=== PATIENT | male | born 1960 ===

== ENCOUNTER 2017-06-14 07:56 | Day surgery (SDC) | payer BC ==
[2017-05-24 10:17] VITALS: BMI 32.1
[2017-06-14 08:41] VITALS: RESP 18
[2017-06-14] MEDS ORDERED: ceFAZolin IV 2 gm in Dextrose 1 GM/50 ML BAG IVPB ONE (10:25)
[2017-06-14] MEDS ORDERED: Propofol 10 mg/ml Inj (20 ML) ONE (10:27)
[2017-06-14] MEDS ORDERED: Midazolam 2 MG/2 ML VIAL ONE (10:27)
[2017-06-14] MEDS ORDERED: Lactated Ringer's 1,000 ML IV ONE ×2 (10:30→12:48)
[2017-06-14] MEDS ORDERED: Neostigmine Methylsulfate 3mg/3ml Syringe IV ONE (12:22)
--- NOTE | 2017-06-14 12:58 | PCM.SURG1 ---
Surgeon's Initial Post Op Note - Surgeon's Notes Surgeon: Lázaro Siu MD Atmospheric Physicist: None Type of Anesthesia: General Endo, [facility] Pre-Operative Diagnosis: Right knee. #1 complex medial meniscal tear. 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 #3 synovitis Operative Findings: Right knee. #1 complex medial meniscal tear. 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 #3 complex anterior horn lateral meniscal tear. #3 synovitis Post-Operative Diagnosis: Right knee. #1 complex medial meniscal tear. 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 #3 complex anterior horn lateral meniscal tear. #4 synovitis. #5 medial plica band. #6 fat pad inflammation Operation Performed: Right knee Arthroscopic. #1 partial medial and lateral menisectomy. #2 chondroplasty and microfracture medial femoral condyle and tibial plateau. #3 synovectomy, resection plica, & debridement fat pad Specimen/Specimens Removed: specimen= none. implants= none. touniquet time= 0min. complications= none Estimated Blood Loss: EBL {In ML}: 3 Blood Products Given: N/A Drains Used: No Drains Date of Surgery/Procedure: 06/14/17 Time of Surgery/Procedure: 13:01
[2017-06-14] MEDS: HYDROmorphone 0.5 mg/0.5 ml ISec IVP PRN ×3 (13:00→13:18)
[2017-06-14] MEDS ORDERED: Oxycodone/Acetaminophen 5/325 mg Tab PO PRN (13:02)
[2017-06-14] MEDS ORDERED: Midazolam 2 MG/2 ML VIAL IVP PRN (13:25)
[2017-06-14] MEDS ORDERED: HYDROmorphone 1 mg/ml ISec IVP PRN (13:25)
[2017-06-14 15:00] VITALS: BP 1385/75; PULSE 88; TEMP 97.1; O2SAT 100
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
== END 2017-06-14 16:13 | disposition home or self-care (01) ==
LOC: C.SDS 07:56
PROVIDERS: ATTEND Student in an Organized Health Care Education/Training Program
DX: M23.211 Derangement of anterior horn of medial meniscus due to old tear or injury, right knee (principal); M94.261 Chondromalacia, right knee; M67.861 Other specified disorders of synovium, right knee; M65.861 Other synovitis and tenosynovitis, right lower leg
CPT/HCPCS: 29875; 29879; 29880; 97116; 97161; G8978; G8979; G8980; J0690; J1170; J2175; J2250; J2405; J2704; J2710; J3010; J7120

== ENCOUNTER 2017-07-02 16:49 | Emergency (ER) | payer OTHER, BC ==
[2017-07-02 16:49] VITALS: BMI 32.1
[2017-07-02 17:12] VITALS: PULSE 81; RESP 18; TEMP 98.1; O2SAT 98
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
[2017-07-02 18:46] VITALS: BP 134/72
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
== END 2017-07-02 18:35 | disposition home or self-care (01) ==
LOC: C.ER 16:49
DX: M25.561 Pain in right knee (principal)

== ENCOUNTER 2017-07-17 17:47 | Emergency (ER) | payer OTHER, BC ==
[2017-07-17 17:47] VITALS: BMI 32.1
[2017-07-17 17:56] VITALS: O2SAT 97
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
[2017-07-17 18:58] LABS: HEMATOCRIT 42.3 % (35.0-51.0); MEAN CELL VOLUME 85.3 fL (80.0-94.0); MEAN CORPUSCULAR HEMOGLOBIN 29.9 pg (27.0-31.0); MEAN CORPUSCULAR HGB CONC 35.1 g/dL (33.0-37.0); RED CELL DISTRIBUTION WIDTH 12.9 % (11.5-14.5); WHITE BLOOD COUNT 9.2 K/uL (4.8-10.8)
[2017-07-17 19:10] LABS: ALB/GLOB RATIO 1.3 (1.0-2.1); ALKALINE PHOSPHATASE 75 U/L (38-126); ALT/SGPT 59 U/L (21-72); AST/SGOT 31 U/L (17-59); BILIRUBIN,TOTAL 0.4 mg/dL (0.2-1.3); BLOOD UREA NITROGEN 17 mg/dL (9-20); CALCIUM 8.9 mg/dl (8.6-10.4); CARBON DIOXIDE 24 mmol/L (22-30); CHLORIDE 103 mmol/L (98-107); GFR AFRICAN-AMERICAN > 60; GLUCOSE,RANDOM 135 mg/dL (75-110); POTASSIUM 3.8 mmol/L (3.6-5.2); SODIUM 141 mmol/L (132-148); TOTAL PROTEIN 6.6 g/dL (6.3-8.3)
[2017-07-17 21:33] VITALS: BP 141/89; PULSE 81; RESP 20; TEMP 97.7
--- NOTE | 2017-07-18 08:55 | MRI ---
PROCEDURE: RIGHT BRACHIAL PLEXUS MRI WITHOUT CONTRAST HISTORY: possible brachial plexus injury right side COMPARISON: NONE TECHNIQUE: Multiplanar multisequential MR imaging of the right brachial plexus was performed from knee upper cervical spine to the left shoulder without intravenous contrast administered, as per referring physician preference. FINDINGS: No abnormal signal changes are seen in the region of the left brachial plexus roots, trunks, divisions and cords. No fluid collection seen related to the structures or discrete mass. No definitive impingement process is appreciable. No aneurysmal dilatation is appreciated related to the local artery's nor varices to the local veins. There is no cervical rib appreciated. Mild multilevel degenerative disc disease appreciate comprised of disc osteophyte complexes of mild severity at C4-5 and C7-T1 and [id number] severity at C5-6 and C6-7. Those at see C5-6 and C6-7 appear to encroach the ventral cord and may impinge the ventral nerve roots at these levels. No severe stenosis is encountered nevertheless. IMPRESSION: Unremarkable appearing unenhanced right brachial plexus MRI. Multilevel cervical spondylosis appreciated including disc osteophyte complexes at C4-5 through C7-T1 inclusively. Consider dedicated cervical spine MRI for greater detailed evaluation of central canal stenoses here.
== END 2017-07-17 21:36 | disposition left against medical advice (07) ==
LOC: C.ER 17:47
DX: G58.9 Mononeuropathy, unspecified (principal)